=== PATIENT | male | born 1980 | race Two or more races ===

== ENCOUNTER → 2024-10-28 | Outpatient (CLI) | payer MEDICAID, SELFPAY ==
--- NOTE | 2024-10-28 10:34 | XR_ITS ---
EXAMINATION: Ankle, right 3 views . Technique: Ankle AP, oblique, lateral 3 views Date and time of exam: October 28, 2024 1050 hrs. Indications: Ankle sprain 2 days ago followed by helical pain Findings: Moderate osteopenia Moderate narrowing tibiotalar joint No fracture Small posterior bony olecranon spur Impression: No fracture or ankle dislocation
== END | disposition home or self-care (01) ==
LOC: CDIM 10:13
PROVIDERS: PCP Physician Assistant; Referring Provider Physician Assistant; Visit Provider Physician Assistant
DX: S93.401A Sprain of unspecified ligament of right ankle, initial encounter (principal); X58.XXXA Exposure to other specified factors, initial encounter
CPT/HCPCS: 73610